=== PATIENT | female | born 1945 | race Caucasian/White ===

== ENCOUNTER 2016-10-11 06:01 | Inpatient (IN) | payer OTHER ==
[2016-10-01 12:40] VITALS: BMI 24.3
[2016-10-11] MEDS ORDERED: PANTOPRAZOLE 40 MG TABLET (FP) PO ONE (06:29)
[2016-10-11] MEDS ORDERED: CELECOXIB 200 MG CAPSULE PO ONE (06:37)
[2016-10-11] MEDS ORDERED: oxyCODONE HCL 10 MG SUSTAINED ACTING TABLET PO ONE (06:37)
[2016-10-11] MEDS ORDERED: GABAPENTIN 300 MG CAPSULE (FP) PO ONE (06:37)
[2016-10-11] MEDS ORDERED: CEFAZOLIN 1 GM/D5W 50 ML IVPB ONE (06:37)
[2016-10-11] MEDS ORDERED: TRANEXAMIC ACID 1000 MG/10 ML VIAL IVPUSH ONE (06:37)
[2016-10-11] MEDS ORDERED: ROPIVICAINE 0.2%/MORPH PF/KETOROLAC - 51ML DISP.SYRINGE IA ONE ×2 (06:37→10:26)
[2016-10-11] MEDS ORDERED: DEXAMETHASONE SOD PHOSPHATE/PF 10 MG/ML SDV ONE (07:00)
[2016-10-11] MEDS ORDERED: ROPIVACAINE HCL 0.5% 30ML VIAL ONE (07:00)
[2016-10-11] MEDS ORDERED: SODIUM CHLORIDE 0.9% P/F 10 ML VIAL IJ ONE (07:00)
[2016-10-11] MEDS ORDERED: MIDAZOLAM HCL 2 MG/2 ML SINGLE DOSE VIAL ONE (07:00)
[2016-10-11] MEDS ORDERED: VANCOMYCIN 1,000 MG VIAL (RESTRICTED TO ID ONLY) ONE (07:04)
[2016-10-11] MEDS ORDERED: ceFAZolin SODIUM 1 GM VIAL ONE ×2 (07:04→07:34)
[2016-10-11] MEDS ORDERED: PROPOFOL 20 ML ONE ×2 (07:32→09:37)
[2016-10-11] MEDS ORDERED: BUPIVACAINE HCL/PF 0.5% (5MG/ML) 10 ML VIAL ONE (07:38)
--- NOTE | 2016-10-11 07:47 | HP ---
Admitting History and Physical - Admission Chief Complaint: left hip osteoarthritis x years History of Present Illness: 71 year old female presents in regard to her left hip. Longstanding left hip osteoarthritis. Patient complains of pain, limited ROM, difficulty ambulating, difficulty completing ADLs. Patient has failed conservative treatment including PO medication, activity modification and exercise program. Patient would like to proceed with a left total hip arthroplasty (MAKOplasty). History Source: Patient - Past Medical History Cardiovascular: Yes: HTN, Hyperlipdemia Pulmonary: Yes: Asthma ...: No Endocrine: Yes: Hypothyroidism - Past Surgical History Additional Past Surgical History: See written H&P - Smoking History Smoking history: Never smoked Have you smoked in the past 12 months: No - Alcohol/Substance Use Hx Alcohol Use: Yes (SOCIALLY) Home Medications - Allergies Allergies/Adverse Reactions: Allergies Allergy/AdvReac Type Severity Reaction Status Date / Time No Known Drug Allergies Allergy Verified 10/11/16 06:38 - Home Medications Home Medications: Ambulatory Orders Hydrochlorothiazide 25 mg PO DAILY 10/01/16 Levothyroxine [Synthroid -] 125 mcg PO DAILY 10/01/16 Losartan Potassium 100 mg PO DAILY 10/01/16 Mometasone Furoate [Asmanex 220Mcg -] 1 inh IH HS 10/01/16 Simvastatin 40 mg PO HS 10/01/16 Review of Systems - Review of Systems Musculoskeletal: reports: Decreased ROM (Left hip), Joint Pain (Left hip) Physical Examination Vital Signs: Vital Signs Temperature 97.9 F 10/11/16 06:40 Pulse Rate 68 10/11/16 06:40 Respiratory Rate 18 10/11/16 06:40 Blood Pressure 116/68 10/11/16 06:40 O2 Sat by Pulse Oximetry (%) Constitutional: Yes: Well Nourished, No Distress Eyes: Yes: Conjunctiva Clear HENT: Yes: Atraumatic, Normocephalic Neck: Yes: Supple Cardiovascular: Yes: Regular Rate and Rhythm Respiratory: Yes: Regular Gastrointestinal: Yes: Soft ...Rectal Exam: Yes: Deferred Musculoskeletal: Yes: Joint Stiffness (Left hip), Joint Swelling (Left hip) Assessment/Plan 71 year old female with longstanding left hip osteoarthritis. Patient complains of pain, limited ROM, difficulty ambulating and difficulty completing ADLs. Patient has failed all conservative treatment options. Proceed with a left total hip arthroplasty (MAKOplasty).
[2016-10-11] MEDS ORDERED: ACETAMINOPHEN 1000 MG/100 ML VIAL (NON FORMULARY) IVPB ONE ×3 (08:30→12:00)
[2016-10-11] MEDS ORDERED: ONDANSETRON 4 MG/2 ML VIAL ONE (08:47)
[2016-10-11] MEDS ORDERED: DEXAMETHASONE SOD PHOSPHATE 4 MG/1 ML VIAL ONE ×2 (08:47→11:56)
[2016-10-11] MEDS ORDERED: VANCOMYCIN 1,000 MG VIAL (RESTRICTED TO ID ONLY) IVPB ONE (10:24)
[2016-10-11] MEDS ORDERED: TRANEXAMIC ACID 1000 MG/10 ML VIAL IVPB ONE (10:26)
--- NOTE | 2016-10-11 11:17 | OP ---
Operative Note - Note: Operative Date: 10/11/16 Pre-Operative Diagnosis: left hip OA Operation: left PHILIPPE Post-Operative Diagnosis: Same as Pre-op Surgeon: Juan Krishnamurthy Pants Maker: Le Carrillo Estimated Blood Loss (mls): 200
[2016-10-11] MEDS ORDERED: MAG HYDROX/AL HYDROX/SIMETH 30 ML UNIT-DOSE CUP PO PRN (11:18)
[2016-10-11] MEDS ORDERED: MAGNESIUM HYDROX 2400MG/30ML ORAL SUSPENSION 30 ML CUP PO PRN (11:18)
[2016-10-11] MEDS ORDERED: oxyCODONE HCL 5 MG TABLET PO PRN ×2 (11:25→11:26)
[2016-10-11] MEDS ORDERED: LACTATED RINGERS SOLUTION 1,000 ML IV SCH (11:30)
[2016-10-11] MEDS ORDERED: KETOROLAC TROMETHAMINE 30 MG/1 ML VIAL IVPUSH SCH (11:30)
[2016-10-11] MEDS: ONDANSETRON 4 MG/2 ML VIAL IVPB PRN ×2 (12:00→17:05)
[2016-10-11] MEDS ORDERED: DEXAMETHASONE SOD PHOSPHATE 4 MG/1 ML VIAL IVPUSH ONE (12:27)
--- NOTE | 2016-10-11 13:01 | SPEC ---
DATE OF OPERATION: 10/11/2016 PREOPERATIVE DIAGNOSIS: Left hip osteoarthritis. POSTOPERATIVE DIAGNOSIS: Left hip osteoarthritis. PROCEDURE: Left total hip replacement with MAKOplasty robotic navigation. ATTENDING: Rhonda Francisco MD OIL PROCESSING TECHNICIAN: BRIAN Blas ANESTHESIA: Spinal plus sedation. ESTIMATED BLOOD LOSS: 200 mL. COMPLICATIONS: None. SPECIMENS: Resected bone was sent for pathology analysis. DISPOSITION: The patient was transferred to the PACU in stable condition. IMPLANTS USED: Lori Accolade 2 size 4 femoral stem, 54-mm Tritanium acetabular component with MDM liner and MDM bipolar head ball with ceramic inner head. Also a 25-mm acetabular fixation screw. INDICATIONS: This is a 71-year-old female who presented to the office complaining of severe left hip pain. She had previously seen Dr. Terry and had discussed a left hip replacement, but then he left his practice, and she came to see me. Physical examination and radiographs revealed severe osteoarthritis of the left hip. The patient had been treated nonoperatively for some time and failed conservative management; therefore, she was indicated for a total hip replacement with MAKOplasty robotic navigation. The risks, benefits, and alternatives to the procedure were explained to the patient in great detail, and she elected to proceed with surgery. DESCRIPTION OF PROCEDURE: On the day of surgery, the patient was taken to the operating room and placed on the OR table. Spinal anesthesia was administered by the anesthesiologist. The patient was then positioned in the lateral decubitus position on the table and all bony prominences were padded. An axillary roll was placed. The operative hip was then prepped and draped in the usual sterile fashion and intravenous antibiotics were given for infection prophylaxis. A surgical time- out was then performed with the team, and the patients identity, procedure, side, availability of implants, and the administration of antibiotics were confirmed. An approximately 15-cm longitudinal incision was made through the skin centered on the greater trochanter of the hip. This dissection was carried down through the subcutaneous tissues to the deep fascia. This fascia was then incised and a Cobra was placed around the inferior femoral neck. Electrocautery was used to reflect the anterior 40% of the gluteus medius and minimus starting at the musculotendinous junction and leaving a cuff for closure. This was reflected to reveal the capsule of the hip joint. An anterior capsulectomy was performed and the femoral head and neck were visualized. Grade 4 changes were noted diffusely throughout the joint. At this point, three small stab incisions were made superior to the main incision along the iliac crest. Three self-drilling Steinmann pins were then placed and the Roc2Loc pelvic array was attached. Reference points on the limb were then entered into the robotic device and the limb length deficiency, offset, and femoral neck resection level were then calculated by the software. The hip was then dislocated with traction and external rotation. An oscillating saw was used to make the femoral neck cut at the level previously templated, and the femoral head was removed. Attention was then turned to the acetabulum. Retractors were then placed around the acetabulum and the labrum was removed. An acetabular checkpoint pin and the Roc2Loc software were used to register the contours of the acetabulum. The acetabulum was then reamed in a single stage to the preoperatively templated size using the Roc2Loc robotic arm. The appropriately sized cup was then impacted and had solid fixation as well as the preset inclination and version of 40 and 20 degrees, respectively. A polyethylene liner was then placed in the cup. Attention was then turned back to the femur, which was externally rotated for improved visualization. A femoral neck elevator was used to present the femoral neck cut, a box osteotome was used to enter the femoral canal, and a canal finder was used to go down the femoral shaft. The Maycol broaches were used sequentially until the optimal scratch fit was achieved. This correlated with the preoperatively templated size. From here, several different offset head and neck configurations were tested until excellent stability and length were obtained. These measurements were quantified using the Roc2Loc software. All trial components were then removed, the femur was copiously irrigated, and the final components were placed. Leg length and stability were checked again and found to be excellent. Irrigation was performed again. After final components were placed, a 3-minute dilute Betadine lavage was performed, according to the WOLCOTT protocol. After this, the wounds were thoroughly irrigated with normal saline via pulse lavage, and then wound closure was begun. Wound closure was started by repairing the abductor muscles with a no. 2 FiberWire stitch in a Krackow configuration passed through bone tunnels in the greater trochanter and tied over a bony bridge. This repair was then reinforced with a 0 V-Loc 180 barbed suture. Next, no. 1 Polysorb and 0 V-Loc 180 were used to close the fascia. The deep subcutaneous tissue was closed with no. 1 Polysorb sutures, and 2-0 Polysorb was used for the superficial subcutaneous tissue. The skin was closed using both 3-0 V- Loc 90 suture in a running subcuticular fashion and SwiftSet skin adhesive. The Maycol array and pins were removed from the iliac crest and the stab incision sites were irrigated and closed with 4-0 Polysorb sutures and SwiftSet skin adhesive. Once this was completed, a sterile dressing was applied. The patient was then awakened and taken to the PACU in stable condition. RHONDA FRANCISCO M.D. [id number] MTDD
[2016-10-11] MEDS: CEFAZOLIN 1 GM/D5W 50 ML IVPB SCH (17:05)
[2016-10-11] MEDS: traMADol HCL 50 MG TABLET PO SCH ×2 (17:36→23:00)
[2016-10-11] MEDS ORDERED: CEFAZOLIN 1 GM/D5W 50 ML IVPB SCH (18:00)
[2016-10-11] MEDS: ACETAMINOPHEN 325 MG TABLET (FP) PO SCH (18:00)
[2016-10-11] MEDS ORDERED: PROMETHAZINE HCL 25 MG/1 ML VIAL IVPUSH ONE (18:00)
[2016-10-11] MEDS: KETOROLAC TROMETHAMINE 30 MG/1 ML VIAL IVPUSH SCH (18:22)
[2016-10-11] MEDS ORDERED: PT OWN MED DRAWER 7, Y5N ONE (21:23)
[2016-10-11] MEDS: ATORVASTATIN CA 20 MG TABLET (FP) PO SCH (21:51)
[2016-10-11] MEDS: ASCORBIC ACID 500 MG TABLET (FP) PO SCH (21:51)
[2016-10-11] MEDS: oxyCODONE HCL 10 MG SUSTAINED ACTING TABLET PO SCH (21:51)
[2016-10-11] MEDS: CELECOXIB 200 MG CAPSULE PO SCH (21:51)
[2016-10-11] MEDS: SENNOSIDES/DOCUSATE COMBO (SENNA PLUS) TABLET (UD) PO SCH (21:51)
[2016-10-11] MEDS: GABAPENTIN 300 MG CAPSULE (FP) PO SCH (21:52)
[2016-10-12] MEDS: ACETAMINOPHEN 325 MG TABLET (FP) PO SCH ×4 (00:34→17:58)
[2016-10-12] MEDS: CEFAZOLIN 1 GM/D5W 50 ML IVPB SCH (01:04)
[2016-10-12] MEDS: KETOROLAC TROMETHAMINE 30 MG/1 ML VIAL IVPUSH SCH ×2 (06:00→06:36)
[2016-10-12] MEDS: LEVOTHYROXINE NA 125 MCG TABLET (FP) PO SCH (06:34)
[2016-10-12] MEDS: traMADol HCL 50 MG TABLET PO SCH ×3 (06:35→17:57)
[2016-10-12] MEDS: MOMETASONE FUROATE 220 MCG/IH INHALER IH SCH ×2 (06:37→21:26)
[2016-10-12 08:18] LABS: MCH 28.3 pg (25.7-33.7); MCHC 32.8 g/dl (32.0-36.0); MEAN CELL VOLUME 86.5 fl (80-96); PLATELET COUNT 307 K/MM3 (134-434); RDW 12.6 % (11.6-15.6); WHITE BLOOD COUNT 13.7 K/mm3 (4.0-10.8)
[2016-10-12] MEDS: ASPIRIN 325 MG TABLET PO SCH (08:35)
[2016-10-12 08:43] LABS: ANION GAP 3 (8-16); CALCIUM 8.9 mg/dl (8.4-10.2); CO2 25 mmol/L (22-28); CREATININE 1.3 mg/dl (0.6-1.3); GLUCOSE,RANDOM 147 mg/dl (74-106)
[2016-10-12] MEDS: PANTOPRAZOLE 40 MG TABLET (FP) PO SCH (09:38)
[2016-10-12] MEDS: SENNOSIDES/DOCUSATE COMBO (SENNA PLUS) TABLET (UD) PO SCH ×2 (09:38→21:27)
[2016-10-12] MEDS: MULTIVITAMINS (DAILY MVI) TABLET (FP) PO SCH (09:39)
[2016-10-12] MEDS: CELECOXIB 200 MG CAPSULE PO SCH ×2 (09:39→21:26)
[2016-10-12] MEDS: LOSARTAN POTASSIUM 50 MG TABLET (FP) PO SCH (09:39)
[2016-10-12] MEDS: oxyCODONE HCL 10 MG SUSTAINED ACTING TABLET PO SCH ×2 (09:39→21:28)
[2016-10-12] MEDS: GABAPENTIN 300 MG CAPSULE (FP) PO SCH ×2 (09:39→21:27)
[2016-10-12] MEDS: HYDROCHLOROTHIAZIDE 25 MG TABLET (FP) PO SCH (09:39)
[2016-10-12] MEDS: ASCORBIC ACID 500 MG TABLET (FP) PO SCH ×2 (09:39→21:26)
--- NOTE | 2016-10-12 12:37 | PN ---
Progress Note (short form) - Note Progress Note: ANESTHESIA POSTOP: 71 YO female POD #1 s/p Left PHILIPPE. Patient doing well. No c/o pain. Nausea immediately postop but has resolved. She was able to participate in PT. Encouraged active participation in therapy and use of IS. Patient tolerating PO.
--- NOTE | 2016-10-12 20:23 | PN ---
Progress Note (short form) - Note Progress Note: Pt seen and examined. Comfortable today. Nauseated yesterday but that resolved. Walked several hundred feet with PT. Pain well controlled. AVSS Selected Entries 10/12/16 10/12/16 10/12/16 06:00 06:29 08:14 Temperature 97.7 F Pulse Rate 73 Respiratory 19 Rate Blood Pressure 107/53 Blood Pressure Position O2 Sat by Pulse 96 97 Oximetry (%) Oxygen Delivery Room Air Room Air Method 10/12/16 17:18 Temperature 97.9 F Pulse Rate 61 Respiratory 18 Rate Blood Pressure 98/55 Blood Pressure Sitting Position O2 Sat by Pulse 97 Oximetry (%) Oxygen Delivery Room Air Method Laboratory Tests 10/12/16 10/12/16 07:50 07:50 WBC 13.7 H D Hgb 9.7 L D Hct 29.6 L D Plt Count 307 D Sodium 135 L Potassium 5.0 Chloride 107 Carbon Dioxide 25 Anion Gap 3 L BUN 42 H Creatinine 1.3 Random Glucose 147 H D Calcium 8.9 Gen: NAD LLE: c/d/i, NVID A/P 71yo female POD#1 s/p L PHILIPPE 1. PT/OOB - WBAT LLE 2. D/C home in AM after PT - f/u in office in 10-14 days.
--- NOTE | 2016-10-12 20:28 | DS ---
Physical Examination Vital Signs: Vital Signs Temperature 97.9 F 10/12/16 17:18 Pulse Rate 61 10/12/16 17:18 Respiratory Rate 18 10/12/16 17:18 Blood Pressure 98/55 10/12/16 17:18 O2 Sat by Pulse Oximetry (%) 97 10/12/16 17:18 Labs: CBC, BMP 10/12/16 07:50 10/12/16 07:50 Discharge Summary Reason For Visit: left PHILIPPE Current Active Problems Osteoarthritis of left hip (Acute) Procedures: Principal: left PHILIPPE Hospital Course: Admitted for elective surgery. Procedure performed without complications. Pt received postoperative antibiotic prophylaxis and DVT ppx. Ambulated with physical therapy. Stable for discharge home with outpatient followup. Condition: Stable - Instructions Diet, Activity, Other Instructions: Dr Krishnamurthy - Hip Replacement Instructions Keep the Aquacel dressing on until removed by Dr. Krishnamurthy in 10-14 days - it is antibacterial and waterproof and you can shower with it on. Call the office for a follow-up appointment with Dr. Krishnamurthy in 10-14 days. Take one Aspirin 325mg daily for 6 weeks to prevent blood clots in your legs. Take one Pantoprazole 40mg daily for 6 weeks to protect against heartburn and ulcers. Take Celebrex 200mg once daily for 30 days to reduce swelling and inflammation. Take a multivitamin, additional vitamin C supplement, and stool softener daily. For pain: *Mild pain (1-3/10): Take 1 Tramadol tablet every 4 hours as needed. Moderate pain (4-6/10): Take 1 Tramadol tablet and 1 Percocet tablet every 4 hours as needed. Severe pain (7-10/10): Take 1 Tramadol tablet and 2 Percocet tablets every 4 hours as needed. Activity: You can put as much weight on the operative leg as you want. For the first 6 weeks, all you need to do is walk around the house, go up/down stairs, and sit down/get up. After 6 weeks when everything is healed (and bone has grown into the implant) you will be sent for more intensive outpatient physical therapy. Always use a walker or cane for balance and to prevent falls. Disposition: VNS/HOME HEALTH CARE - Home Medications Comprehensive Discharge Medication List: Ambulatory Orders Hydrochlorothiazide 25 mg PO DAILY 10/01/16 Levothyroxine [Synthroid -] 125 mcg PO DAILY 10/01/16 Losartan Potassium 100 mg PO DAILY 10/01/16 Mometasone Furoate [Asmanex 220Mcg -] 1 inh IH HS 10/01/16 Simvastatin 40 mg PO HS 10/01/16 Ascorbic Acid [Vitamin C -] 500 mg PO BID tablet 10/12/16 Aspirin [ASA -] 325 mg PO DAILY@0800 tablet 10/12/16 Celecoxib [CeleBREX -] 200 mg PO DAILY #30 tab 10/12/16 Multivitamins [Multivit ([facility] Formul[facility])] 1 tab PO DAILY tab 10/12/16 Oxycodone HCl/Acetaminophen [Percocet 5-325 mg Tablet] 1 - 2 tab PO Q4H PRN #60 tablet MDD 8 10/12/16 Pantoprazole Sodium [Protonix -] 40 mg PO DAILY #40 tab 10/12/16 Sennosides/Docusate Sodium [Pericolace -] 2 tablet PO BID tablet 10/12/16 Tramadol HCl [Ultram -] 50 mg PO Q4H PRN #90 tablet MDD 6 10/12/16
[2016-10-12] MEDS: ATORVASTATIN CA 20 MG TABLET (FP) PO SCH (21:27)
[2016-10-13] MEDS: ACETAMINOPHEN 325 MG TABLET (FP) PO SCH ×2 (05:29→06:05)
[2016-10-13] MEDS: traMADol HCL 50 MG TABLET PO SCH ×2 (05:29→06:05)
[2016-10-13] MEDS: LEVOTHYROXINE NA 125 MCG TABLET (FP) PO SCH (06:06)
[2016-10-13 06:29] VITALS: BP 94/57; PULSE 72; TEMP 98.7
[2016-10-13 08:04] LABS: MCH 28.7 pg (25.7-33.7); MCHC 33.3 g/dl (32.0-36.0); MEAN CELL VOLUME 86.4 fl (80-96); MEAN PLT VOLUME 8.3 fl (7.5-11.1); PLATELET COUNT 281 K/MM3 (134-434); RDW 12.5 % (11.6-15.6); WHITE BLOOD COUNT 10.9 K/mm3 (4.0-10.8)
[2016-10-13 08:25] LABS: ANION GAP 7 (8-16); CALCIUM 8.8 mg/dl (8.4-10.2); CO2 25 mmol/L (22-28); CREATININE 1.1 mg/dl (0.6-1.3); GLUCOSE,RANDOM 112 mg/dl (74-106)
--- NOTE | 2016-10-13 08:56 | PN ---
Progress Note (short form) - Note Progress Note: Operative note dictation family court counsellor has typographical error - procedure is total hip replacement not total knee replacement. Message sent to medical records.
--- NOTE | 2016-10-13 09:29 | PN ---
Progress Note (short form) - Note Progress Note: Anesthesiology Pain Service POD #2 s/p Left THR with regional/neuraxial anesthesia. Pt. feels well, pain is well-controlled with meds. Pt. able to participate in PT. VSS.
[2016-10-13] MEDS: GABAPENTIN 300 MG CAPSULE (FP) PO SCH (09:39)
[2016-10-13] MEDS: SENNOSIDES/DOCUSATE COMBO (SENNA PLUS) TABLET (UD) PO SCH (09:39)
[2016-10-13] MEDS: oxyCODONE HCL 10 MG SUSTAINED ACTING TABLET PO SCH (09:39)
[2016-10-13] MEDS: LOSARTAN POTASSIUM 50 MG TABLET (FP) PO SCH (09:39)
[2016-10-13] MEDS: HYDROCHLOROTHIAZIDE 25 MG TABLET (FP) PO SCH (09:39)
[2016-10-13] MEDS: ASPIRIN 325 MG TABLET PO SCH (09:39)
[2016-10-13] MEDS: CELECOXIB 200 MG CAPSULE PO SCH (09:39)
[2016-10-13] MEDS: ASCORBIC ACID 500 MG TABLET (FP) PO SCH (09:40)
[2016-10-13] MEDS: PANTOPRAZOLE 40 MG TABLET (FP) PO SCH (09:40)
[2016-10-13] MEDS: MULTIVITAMINS (DAILY MVI) TABLET (FP) PO SCH (09:40)
--- NOTE | 2016-10-13 15:33 | PATH ---
Surgical Pathology Report Patient Name: BOB CLAIRE Med. Rec. #: [id number] /Age/Gender: 1945 (Age: 71) / F Account: [id number] Location: [facility] MED-SURG Taken: 10/11/2016 Received: 10/11/2016 Reported: 10/13/2016 Physicians: Juan Krishnamurthy M.D. Specimen(s) Received FEMORAL HEAD LEFT HIP Clinical History Osteoarthritis left hip Final Diagnosis FEMORAL HEAD, LEFT HIP, TOTAL HIP REPLACEMENT: DEGENERATIVE JOINT DISEASE. Electronically Signed Emely Ornelas M.D. Gross Description Received in formalin, labeled "left hip femoral head," is a 4.5 x 4.5 x 4.0 cm. femoral head with 1.0 cm in length portion of femoral neck attached. The margin of resection is smooth. There is a 2 cm in greatest dimension area of eburnation present. The remaining articular surface is serrano-yellow and diffusely nodular and granular. The underlying trabecular bone is yellow and hard. A merchandising representative section is submitted in one cassette, following decalcification. 10/12/2016 [facility]
== END 2016-10-13 11:33 | disposition home health service (06) | DRG 470 ==
LOC: FM/S 06:01
PROVIDERS: ADMIT Student in an Organized Health Care Education/Training Program; ATTEND Student in an Organized Health Care Education/Training Program
PROC: 8E0W0CZ Robotic Assisted Procedure of Trunk Region, Open Approach (ICD-10-PCS; 2016-10-11)
PROC: 0SRB04A Replacement of Left Hip Joint with Ceramic on Polyethylene Synthetic Substitute, Uncemented, Open Approach (ICD-10-PCS; principal; 2016-10-11 09:00)
DX: M16.12 Unilateral primary osteoarthritis, left hip (principal); I10 Essential (primary) hypertension; E78.5 Hyperlipidemia, unspecified; J45.909 Unspecified asthma, uncomplicated; E03.9 Hypothyroidism, unspecified
CPT/HCPCS: 36415; 73502-TC-LT; 80048; 85027; 88304-TC; 88311-TC; 94010; 94760; 97010-GP; 97116-GP; 97161-GP